=== PATIENT | male | born 1945 | race Caucasian/White ===

== ENCOUNTER → 2023-09-24 11:17 | Outpatient (CLI) | payer MEDICARE, OTHER, SELFPAY ==
[2023-09-24 12:05] LABS: Add Manual Diff / Slide Review NO; Basophils Absolute Auto 0 /uL (0-100); Basophils Percent Auto 0.3 % (0-2); Eosinophils Absolute Auto 0 /uL (0-450); Eosinophils Percent Auto 0.6 % (2-4); Hematocrit 42.1 % (41-53); Hemoglobin 14.3 g/dL (13.5-17.5); Lymphocytes Absolute Auto 700 /uL (1100-4500); Lymphocytes Percent Auto 10.4 % (25-40); Mean Corpuscular HGB Conc 34.1 % (30-36); Mean Corpuscular Hemoglobin 30.7 PG (26-34); Mean Corpuscular Volume 90.1 fL (80-100); Monocytes Absolute Auto 300 /uL (0-900); Monocytes Percent Auto 5.5 % (3-14); Neutrophils Absolute Auto 5200 /uL (1500-7000); Neutrophils Percent Auto 83.2 % (50-75); Platelet Count 206 X10^3/uL (150-400); Red Blood Cell Count 4.67 X10^6/uL (4.5-5.9); Red Cell Distribution Width 14.3 % (11.6-14.8); White Blood Cell Count 6.3 X10^3/uL (4.5-11.0)
[2023-09-24 12:32] LABS: Alanine Aminotransferase 5 IU/L (<50); Albumin 4.7 g/dL (3.5-5.0); Albumin Globulin Ratio 1.8 (1.0-2.8); Alkaline Phosphatase 97 U/L (38-126); Aspartate Aminotransferase 29 IU/L (17-59); BUN Creatinine Ratio 16.7 (6-22); Bilirubin Total 0.9 mg/dL (0.2-1.3); Blood Urea Nitrogen 15 mg/dL (9-20); Calcium 9.6 mg/dL (8.4-10.2); Carbon Dioxide 28 mmol/L (22-32); Chloride 103 mmol/L (98-107); Estimated Glomerular Filt Rate > 60 mL/min (>60); Globulin 2.6 g/dL (1.7-4.1); Glucose 104 mg/dL (80-110); HEMOLYSIS < 15 (0-50); Potassium 4.8 mmol/L (3.4-5.1); Sodium 140 mmol/L (137-145); Total Protein 7.3 g/dL (6.3-8.2)
[2023-09-24 12:34] LABS: Prothrombin Time 11.5 SECONDS (9.4-12.5)
== END ==
PROVIDERS: PCP Family Medicine; Referring Provider Family Medicine; Visit Provider Family Medicine
DX: Z01.818 Encounter for other preprocedural examination (principal); Z76.89 Persons encountering health services in other specified circumstances; G20.A1 Parkinson's disease without dyskinesia, without mention of fluctuations
CPT/HCPCS: 36415; 80053; 85025; 85610

== ENCOUNTER → 2024-01-24 09:43 | Outpatient (CLI) | payer MEDICARE, OTHER, SELFPAY ==
--- NOTE | 2024-01-24 09:44 | DI.US.S_ITS ---
PROCEDURE: US EXTREMITY NONVASC LOWER RT INDICATIONS: chronic posterior knee pain; bakers cyst (?) TECHNIQUE: Real-time scanning was performed of the right knee , with image documentation. COMPARISON: None. FINDINGS: At the right popliteal fossa, there is a 2.0 x 3.2 x 0.3 cm fluid collection with minimal internal debris, likely representing a Hess's cyst. At the anteromedial right knee, there is in 8.6 x 5.7 x 1.1 cm elongated multi septated fluid collection with mobile internal debris. There is no internal vascularity. IMPRESSION: 1. Small 3.2 cm popliteal fossa Hess's cyst. 2. Moderate 8.6 cm multi-septated fluid collection at the anteromedial knee, which may represent fluid in the medial suprapatellar recess versus pes anserine bursitis with underlying synovitis. Dictated by: Balwinder George M.D. on 01/24/2024 at 13:23 Approved by: Balwinder George M.D. on 01/24/2024 at 13:26
== END ==
PROVIDERS: PCP Family Medicine; Referring Provider Family Medicine; Visit Provider Family Medicine
DX: M71.21 Synovial cyst of popliteal space [Baker], right knee (principal); M25.569 Pain in unspecified knee; G89.29 Other chronic pain; G20.A1 Parkinson's disease without dyskinesia, without mention of fluctuations; R29.6 Repeated falls
CPT/HCPCS: 76882

== ENCOUNTER → 2024-11-15 11:53 | Outpatient (CLI) | payer MEDICARE, OTHER, SELFPAY ==
--- NOTE | 2024-11-15 11:55 | DI.RAD.S_ITS ---
PROCEDURE: XR ABDOMEN MIN 2V INDICATIONS: Unspecified abdominal pain TECHNIQUE: 2 views of the abdomen were acquired. COMPARISON: None. FINDINGS: Surgical changes and devices: None. Bowel: No pneumoperitoneum. The bowel gas pattern is normal. Increased quantity of solid stool in the descending and sigmoid colon. Soft tissues: No masses; visualized solid organ contours appear normal in size. No suspicious abdominal calcifications. Mild atherosclerotic calcification. Bones: No suspicious bony abnormalities. Mild dextroscoliosis and bilateral hip joint degeneration. IMPRESSION: Mild colonic obstipation. No radiographic evidence of bowel obstruction. Dictated by: Cait Ball M.D. on 11/15/2024 at 17:27 Approved by: Cait Ball M.D. on 11/15/2024 at 17:28
== END ==
PROVIDERS: PCP Family Medicine; Referring Provider Family Medicine; Visit Provider Family Medicine
DX: K59.00 Constipation, unspecified (principal); R10.9 Unspecified abdominal pain
CPT/HCPCS: 74019